=== PATIENT | female | born 1945 | race Two or more races ===

== ENCOUNTER 2017-05-03 04:50 | Emergency (ER) | payer SELFPAY ==
[~2017-05-03] VITALS: Ht 144.8 cm; Wt 59.0 kg
[2017-05-03 04:50] VITALS: BP 142/61
[2017-05-03] MEDS ORDERED: IBUPROFEN 400 MG TABLET ONE (05:19)
[2017-05-03] MEDS ORDERED: IBUPROFEN 400 MG TABLET PO ONE (05:30)
[2017-05-03 05:36] LABS: BASOPHILS % (AUTO) 0.3 % (0.0-2.0); EOSINOPHILS # (AUTO) 0.1 /CMM (0.0-0.7); EOSINOPHILS % (AUTO) 1.4 % (0.0-6.0); HEMATOCRIT 40 % (33-45); HEMOGLOBIN 13.1 g/dL (11.5-14.8); LYMPHOCYTES # (AUTO) 2.3 /CMM (0.8-4.8); LYMPHOCYTES % (AUTO) 45.6 % (20.0-44.0); MEAN CORPUSCULAR HEMOGLOBIN 29 PG (26.0-33.0); MEAN CORPUSCULAR HGB CONC 33 g/dl (31.0-36.0); MEAN CORPUSCULAR VOLUME 87 fL (82-100); MONOCYTES # (AUTO) 0.4 /CMM (0.1-1.30); MONOCYTES % (AUTO) 7.4 % (2.0-12.0); NEUTROPHILS # (AUTO) 2.3 /CMM (1.8-8.9); NEUTROPHILS % (AUTO) 45.3 % (43.0-81.0); PLATELET COUNT (AUTO) 156 /CMM (150-450); RDW COEFFICIENT OF VARIATION 12.9 (11.5-15.0); RED BLOOD CELL COUNT(AUTO) 4.57 MIL/uL (4.0-5.2)
[2017-05-03 05:44] LABS: CARBON DIOXIDE 25 mmol/L (21-32); CHLORIDE 111 mmol/L (98-107); CREATININE 0.7 mg/dL (0.6-1.3); GLUCOSE 105 mg/dL (74-106); POTASSIUM 3.9 mmol/L (3.5-5.1); SODIUM SERUM 145 mmol/L (136-145); UREA NITROGEN, BLOOD 15 mg/dL (7-18)
[2017-05-03 05:49] LABS: D-DIMER 0.21 mg/L(FEU (0.17-0.50); INR 0.94 (0.87-1.13)
[2017-05-03 05:54] LABS: TROPONIN I < 0.017 ng/mL (0.00-0.056)
== END 2017-05-03 06:23 | disposition home or self-care (01) ==
LOC: ER 04:58
DX: R07.89 Other chest pain (principal)
CPT/HCPCS: 36415; 71010; 80048; 84484; 85025; 85378; 85730; 93005; 99285; A4606; Z7610